=== PATIENT | male | born 1955 | race Caucasian/White ===

== ENCOUNTER 2020-01-14 18:26 | Emergency (ER) | payer BC ==
[~2020-01-14] VITALS: Ht 182.9 cm; Wt 113.4 kg
--- NOTE | 2020-01-14 19:27 | EKG ---
[facility] [address] [facility] [place] [address] Signed Sinus bradycardia Otherwise normal ECG No previous ECGs available Confirmed by ANKUR SR MD ([id number]) on 01/14/2020 7:26:53 PM Electronically Signed By: ANKUR SR MD 01/14/20 192 PATIENT NAME: CORDELL SHEN Electrocardiogram DATE OF : 55 PHYSICIAN: ANKUR SR MD REPORT #: [id number] REPORT IS CONFIDENTIAL AND NOT TO BE RELEASED WITHOUT AUTHORIZATION
[2020-01-14] MEDS ORDERED: PROTONIX40 MG PO (22:33)
== END 2020-01-14 22:47 | disposition home or self-care (01) ==
LOC: ED 18:26
DX: R07.2 Precordial pain (principal); Z87.891 Personal history of nicotine dependence; Z88.0 Allergy status to penicillin; Z88.2 Allergy status to sulfonamides
CPT/HCPCS: 71045; 80053; 83690; 83735; 84484; 85025; 93005; 93010; 99285-25

== ENCOUNTER 2023-07-18 10:33 | Day surgery (SDC) | payer OTHER, MEDICARE ==
[2023-07-13 17:30] VITALS: BP 154/89
[~2023-07-18] VITALS: Ht 182.9 cm; Wt 113.0 kg
[~2023-07-18 10:33] MED LIST: PROTONIX40 MG PO
[2023-07-18 11:13] VITALS: BP 141/70
--- NOTE | 2023-07-18 13:21 | NUR ---
07/18/23 1321 Olga Alexandra PT TO PACU ALERT AND AWAKE. PT ASKING FOR WATER, PO FLUIDS TOLERATED WELL.
[2023-07-18 13:30] VITALS: BP 124/78
--- NOTE | 2023-07-20 11:29 | OR ---
[facility] [address] [place], [place] [address] Signed DATE OF OPERATION: 07/18/2023 SURGEON: Hellen Cervantes MD PREOPERATIVE DIAGNOSES: 1. Episodic rectal bleeding. 2. Family history of multiple polyps. POSTOPERATIVE DIAGNOSIS: Polyps x4 (rectum and sigmoid). PROCEDURE: Total colonoscopy to cecum with cold morcellation polypectomy x4. ANESTHESIA: Intravenous sedation; fentanyl 100 mcg and Versed 4 mg. INDICATION: This 68-year-old white man has a family history of polyps. His sister had 17 polyps at one time. He has no actual family history of colon cancer that he is aware of. He has undergone colonoscopy twice in [place], [place]. He is uncertain if he ever had polyps himself. He does occasionally have some rectal bleeding, but that has abated. He is admitted at this time to undergo screening colonoscopy. He understands the risk of bleeding, infection, and perforation. FINDINGS: The prep was adequate. Complete colonoscopy was undertaken of the cecum. Full intubation of the cecum was accomplished. He had four polyps in total, one linear polyp at the sigmoid, which was excised as well as three smaller polyps at the rectosigmoid also excised with cold morcellation technique. There were no other findings of concern. He had no sign of significant hemorrhoidal disease at this time. DESCRIPTION OF PROCEDURE: The patient was brought to the endoscopy suite and placed in the lateral decubitus position, given intravenous sedation to the point of slurred speech and nystagmus. Full cardiopulmonary monitoring was maintained. Digital rectal examination was normal. An Olympus video colonoscope was passed in the rectum and manipulated throughout the Electronically Signed By: HELLEN CERVANTES MD 07/20/23 1129 PATIENT NAME: CORDELL SHEN OPERATIVE REPORT DATE OF : 55 REPORT #: [id number] PHYSICIAN: HELLEN CERVANTES MD PCP: COY FLORES MD REPORT IS CONFIDENTIAL AND NOT TO BE RELEASED WITHOUT AUTHORIZATION [facility] [address] [place], [place] [address] Signed colon ultimately intubating the cecum itself. The ileocecal valve and appendiceal orifice were normal. The prep was good overall. Upon withdrawal of the scope, irrigation was undertaken as necessary to fully view the mucosa. In the sigmoid, a linear polyp probably hyperplastic was noted, this was excised with multiple bites of morcellation device completely obliterating and removing the polyp. The scope was further withdrawn and at the rectosigmoid there were three small polyps, these were excised with cold morcellation technique without problem. The scope was removed after retroflexed view confirmed no evidence of ongoing hemorrhoid disease. The patient was taken to the recovery room in good condition. CONCLUDING DIAGNOSIS: Polyps x4. PLAN: Recommend repeat colonoscopy in 5 years, sooner if clinically indicated. He will return to the ongoing care of Dr. Coy Flores. MD JHONY Tracey/FLO /[id number] cc: Coy Flores MD Copies: COY FLORES MD ~ Electronically Signed By: HELLEN CERVANTES MD 07/20/23 1129 PATIENT NAME: CORDELL SHEN OPERATIVE REPORT DATE OF : 55 REPORT #: [id number] PHYSICIAN: HELLEN CERVANTES MD PCP: COY FLORES MD REPORT IS CONFIDENTIAL AND NOT TO BE RELEASED WITHOUT AUTHORIZATION
--- NOTE | 2023-07-21 15:50 | PATH ---
[facility] [address] [facility] [place], [place] [address] Signed SPECIMEN(S): A COLON POLYP AT 70 CM SPECIMEN(S): B RECTAL POLYPS SPECIMEN SOURCE: A. COLON POLYP AT 70 CM B. RECTAL POLYPS CLINICAL HISTORY: Rectal bleeding, colon polyps x4. FINAL PATHOLOGIC DIAGNOSIS: A. Colon polyp at 70 cm: - Polypoid fragments of benign colonic mucosa, negative for pathologic inflammation. B. Rectal polyps: - Hyperplastic polyps (multiple fragments). JVR:cintia MICROSCOPIC EXAMINATION: Histologic sections of all submitted blocks are examined by light microscopy. These findings, together with the gross examination, support the pathologic diagnosis. GROSS DESCRIPTION: A. The specimen, labeled and designated "Shen, colon polyp at 70 cm," is received in formalin and consists of five wade soft tissue fragments, ranging from 0.1-0.2 cm. Entirely submitted in (A1). B. The specimen, labeled and designated "Shen, rectal polyps," is received in formalin and consists of three wade soft tissue fragments, ranging from 0.2 cm. Entirely submitted in (B1). JS (under the direct supervision of a pathologist) The Gross Description was prepared using a voice recognition system. The report was reviewed for accuracy; however, sound-alike word errors, addition and/or deletions may occur. If there is any question about this report, please contact Client Services. PERFORMING LABORATORY: Technical component was performed by [facility], [address] [place] [id number] (CLIA# [id number]). Professional interpretation was performed by [facility] - [facility], [address] [place] [address], [place] [address] (CLIA#: [id number]). PATIENT NAME: CORDELL SHEN PATHOLOGY DATE OF : 55 REPORT #: [id number] PHYSICIAN: [facility] PCP: COY BURGOS MD REPORT IS CONFIDENTIAL AND NOT TO BE RELEASED WITHOUT AUTHORIZATION [address] [place], [place] [address] Signed Diagnostician: Asher Tuttle MD Pathologist Electronically Signed 07/21/2023 Copies: ~ PATIENT NAME: CORDELL SHENTON PATHOLOGY DATE OF : 55 REPORT #: [id number] PHYSICIAN: DAVID PATHOLOGY PCP: COY BURGOS MD REPORT IS CONFIDENTIAL AND NOT TO BE RELEASED WITHOUT AUTHORIZATION
== END 2023-07-18 13:55 | disposition home or self-care (01) ==
LOC: OPS 10:33 → DS 10:37 → OPS 12:00 → DS 12:20 → OPS 13:00 → DS 14:00 → OPS 14:00
PROVIDERS: ATTEND Surgery
PROC: 0DBN8ZX Excision of Sigmoid Colon, Via Natural or Artificial Opening Endoscopic, Diagnostic (ICD-10-PCS; 2023-07-18)
PROC: 0DBP8ZX Excision of Rectum, Via Natural or Artificial Opening Endoscopic, Diagnostic (ICD-10-PCS; principal; 2023-07-18 12:00)
DX: Z12.11 Encounter for screening for malignant neoplasm of colon (principal); K63.5 Polyp of colon; K62.1 Rectal polyp; N43.41 Spermatocele of epididymis, single; K21.9 Gastro-esophageal reflux disease without esophagitis; Z83.719 Family history of colon polyps, unspecified; Z85.46 Personal history of malignant neoplasm of prostate
CPT/HCPCS: 99153; G0500; J0690; J2250; J3010; J7121

== ENCOUNTER 2023-07-28 07:30 | Day surgery (SDC) | payer OTHER, MEDICARE ==
[2023-07-13 16:48] VITALS: BP 154/89
[2023-07-13 17:34] VITALS: BP 154/89
[~2023-07-28] VITALS: Ht 182.9 cm; Wt 113.6 kg
[2023-07-28 07:55] VITALS: BP 138/80
--- NOTE | 2023-07-28 09:06 | NUR ---
SPORTS PHYSICIAN IN TO SEE PT.
--- NOTE | 2023-07-28 10:14 | NUR ---
07/28/23 Ricardo4 Katy Milligan 1005- PT ARRIVES TO PACU UNIT VIA STRETCHER FROM OR. PT IS NONAROUSABLE VIA TACTILE STIMULI AT THIS TIME. ORAL AIRWAY IN PLACE W/6L OF O2 VIA MASK. RESPIRATIONS ARE EVEN AND UNLABORED, NO SIGNS OF DISTRESS. REPORT RECEIVED FROM ALLISON MARIN AND TERRIE BURKS. O2 >90% VIA CONT. PULSE OX AT THIS TIME.
[2023-07-28] MEDS ORDERED: TYLENOL EXTRA500 MG PO (10:25)
[2023-07-28] MEDS ORDERED: PERCOCET 7.5-31 EACH PO (10:25)
[2023-07-28] MEDS ORDERED: MOTRIN IB200 MG PO (10:26)
[2023-07-28 10:35] VITALS: BP 146/80
--- NOTE | 2023-07-28 10:42 | NUR ---
REQ COFFEE. DRINKING WATER.
[2023-07-28 11:25] VITALS: BP 128/68
--- NOTE | 2023-07-28 11:28 | NUR ---
HAS EATEN JELLO AND CRACKERS DRANK COFFEE. REQ PAIN MEDICINE AND GIVEN FOR PAIN 11/18.
--- NOTE | 2023-07-28 12:19 | NUR ---
1145 AMB HALLWAY TO BR VOIDS 700MLS YELLOW URINE. CONTS TO RATE PAIN AT 3/10. HAS CALLED FOR RIDE. GETTING DRESSED.
--- NOTE | 2023-07-31 14:49 | OR ---
[facility] [place] [facility] [address] [place], [place] [address] Signed DATE OF OPERATION: 07/28/2023 SURGEON: Hellen Cervantes MD PREOPERATIVE DIAGNOSIS: Right symptomatic spermatocele. POSTOPERATIVE DIAGNOSIS: Right symptomatic spermatocele. PROCEDURE: Scrotal exploration and excision of right spermatocele. ANESTHESIA: General LMA; Dimitris Duarte CRNA. INDICATION: This 68-year-old white man is a patient of Dr. Flores. He was referred for colonoscopy, which has been accomplished. He has noted a palpable mass in the superior aspect of his right testicle. The lesion was somewhat uncomfortable with various sitting positions, but it is not persistently painful. Clinical findings show it to be consistent with a spermatocele. He is admitted at this time to undergo excision of a symptomatic spermatocele. He understands the risk of bleeding, infection, recurrence and other unforeseen complications. FINDINGS: A cystic lesion was noted at the apex of the testicle in conjunction with the epididymis, most consistent with a spermatocele though clear fluid within it may be suggestive of hydrocele only. Complete excision was accomplished. The testicle was normal. Inferior aspect of the testicle was pexed to the inferior aspect of the scrotum to avoid torsion. DESCRIPTION OF PROCEDURE: The patient was brought to the operating room and given a general LMA type anesthetic. The genital area was clipped and prepared with a Betadine based solution and draped sterilely. The testicle was easily distinct from the superior aspect of the testicle of a cystic appearing mass. An incision was made along the line of skin tension in this case vertically oriented. Dissection carried through the skin and dermis with electrocautery. The external spermatic fascia incised. Careful dissection down to the mass itself allowed for extrusion of the testicle and the offending mass. The mass Electronically Signed By: HELLEN CERVANTES MD 07/29/23 5166 Electronically Signed By: HELLEN CERVANTES MD 08/01/23 9694 PATIENT NAME: CORDELL SHEN OPERATIVE REPORT DATE OF : 55 REPORT #: [id number] PHYSICIAN: HELLEN CERVANTES MD PCP: COY FLORES MD REPORT IS CONFIDENTIAL AND NOT TO BE RELEASED WITHOUT AUTHORIZATION [facility] [place] [facility] [address] [place], [place] [address] Signed itself appeared to be a cyst that had clear fluid, but in association with the epididymis itself. This was dissected free with meticulous care from the epididymis and superior aspect of the testicle and its pedicle was ultimately secured with a hemostat, divided and ligated with a 3-0 Vicryl suture. Specimen was passed for pathology. A single stitch in the inferior aspect of the testicle was used to pex the testicle to the scrotum and it was return to its natural anatomic configuration. Soft tissue was closed with interrupted 2-0 Vicryl and skin closed with interrupted 3-0 Vicryl. Steri- Strips were not applied but rather an Acticoat dressing alone. He tolerated the procedure well. Blood loss was minimal. MD JHONY Tracey/FLO /[id number] cc: Coy Flores MD Copies: COY FLORES MD ~ Electronically Signed By: HELLEN CERVANTES MD 07/29/23 1356 Electronically Signed By: HELLEN CERVANTES MD 08/01/23 1908 PATIENT NAME: CORDELL SHEN OPERATIVE REPORT DATE OF : 55 REPORT #: [id number] PHYSICIAN: HELLEN CERVANTES MD PCP: COY FLORES MD REPORT IS CONFIDENTIAL AND NOT TO BE RELEASED WITHOUT AUTHORIZATION
--- NOTE | 2023-08-08 10:29 | PATH ---
[facility] [place] [facility] [address] [facility] [place], [place] [address] Signed SPECIMEN(S): A RIGHT SIDE SPERMATOCELE SPECIMEN SOURCE: A. RIGHT SIDE SPERMATOCELE CLINICAL HISTORY: Right side spermatocele. FINAL PATHOLOGIC DIAGNOSIS: Spermatocele, right side: - Testicular tissue with an adjacent dilated cystic structure, consistent with features seen in spermatocele. LANGK MICROSCOPIC EXAMINATION: Histologic sections of all submitted blocks are examined by light microscopy. These findings, together with the gross examination, support the pathologic diagnosis. GROSS DESCRIPTION: The specimen, labeled and designated "Shen, R, " and designated on the requisition "right spermatocele," is received in formalin and consists of 1.8 x 1.5 x 1.1 cm violaceous and rubbery tissue fragment. Serially sectioning reveals a orange-brown variegated, rubbery cut surface. The specimen is entirely submitted in (A1). FB (under the direct supervision of a pathologist) The Gross Description was prepared using a voice recognition system. The report was reviewed for accuracy; however, sound-alike word errors, addition and/or deletions may occur. If there is any question about this report, please contact Client Services. ADDITIONAL NOTES: Immunohistochemical and/or in situ hybridization studies if performed in this case included appropriate positive controls that reacted as expected. This test was developed and its performance characteristics determined by [facility]. It has not been cleared or approved by the U.S. Food and Drug Administration. The FDA has determined that such clearance or approval is not necessary. This test is used for clinical purposes. It should not be regarded as investigational or for research. [facility] is certified under the Clinical Laboratory Improvement PATIENT NAME: CORDELL SHEN PATHOLOGY DATE OF : 55 REPORT #: [id number] PHYSICIAN: DAVID PATHOLOGY PCP: COY BURGOS MD REPORT IS CONFIDENTIAL AND NOT TO BE RELEASED WITHOUT AUTHORIZATION [facility] [place] [facility] [address] [facility] [place] [address] Signed Amendments of 1988 (CLIA) as qualified to perform high complexity clinical laboratory testing. PERFORMING LABORATORY: Technical component was performed by [facility], [address] [place] [address] (CLIA# [id number]). Professional interpretation was performed by [facility] - [facility], [facility] [address] [address] (CLIA#:[id number]). Diagnostician: Iker Huerta MD Pathologist Electronically Signed 08/08/2023 Copies: ~ PATIENT NAME: CORDELL SHEN PATHOLOGY DATE OF : 55 REPORT #: [id number] PHYSICIAN: DAVID PATHOLOGY PCP: COY BURGOS MD REPORT IS CONFIDENTIAL AND NOT TO BE RELEASED WITHOUT AUTHORIZATION
== END 2023-07-28 12:10 | disposition home or self-care (01) ==
LOC: DS 07:30
PROVIDERS: ATTEND Surgery
PROC: 0VBJ0ZZ Excision of Right Epididymis, Open Approach (ICD-10-PCS; principal; 2023-07-28 09:00)
DX: N43.40 Spermatocele of epididymis, unspecified (principal); Z85.46 Personal history of malignant neoplasm of prostate; K21.00 Gastro-esophageal reflux disease with esophagitis, without bleeding; K62.5 Hemorrhage of anus and rectum; Z98.1 Arthrodesis status
CPT/HCPCS: 00920; J0131; J0690; J1100; J1644; J1885; J2001; J2405; J2704; J3010; J7121

== ENCOUNTER 2025-02-17 13:48 | Emergency (ER) | payer MEDICARE, OTHER ==
[~2025-02-17] VITALS: Ht 182.9 cm; Wt 116.6 kg
[~2025-02-17 13:48] MED LIST changes: +GARLIC100 MG PO; +HYDROCODON-ACE1 EA10 PO; +KRILL OIL500 MG PO; +MAGNESIUM100 MG PO; +MOTRIN IB200 MG PO; +PERCOCET 7.5-31 EACH PO; +TURMERIC500 M2 PO; +TYLENOL EXTRA500 MG PO; +VITAMIN B COMP1 EACH PO
[2025-02-17] MEDS ORDERED: IBUPROFEN600 MG PO (14:57)
[2025-02-17 17:36] VITALS: BP 152/82
== END 2025-02-17 17:31 | disposition home or self-care (01) ==
LOC: ED 13:48
DX: R04.2 Hemoptysis (principal); Z79.899 Other long term (current) drug therapy; Z88.0 Allergy status to penicillin; Z88.2 Allergy status to sulfonamides; Z87.891 Personal history of nicotine dependence
CPT/HCPCS: 71046; 87651; 99285-25